=== PATIENT | female | born 1960 | race Caucasian/White ===

== ENCOUNTER 2018-01-19 19:01 | Emergency (ER) | payer OTHER ==
[~2018-01-19] VITALS: Ht 172.7 cm; Wt 84.0 kg
[2018-01-19 20:07] LABS: BASOPHIL (%) 0.6 % (0-1); BASOPHIL COUNT 0.1 K/uL (0-0.1); EOSINOPHIL (%) 2.9 % (0-5); EOSINOPHIL COUNT 0.2 K/uL (0-0.3); HEMATOCRIT 38.3 % (36.0-46.0); HEMOGLOBIN 12.9 G/DL (11.9-15.5); IMMATURE GRANULOCYTE (%) 0.3 % (0.0-0.7); LYMPHOCYTE (%) 25.8 % (15-42); MCH 30.1 PG (29.0-34.0); MCHC 33.7 G/DL (30.0-36.0); MCV 89.5 FL (83-99); MONOCYTE (%) 7.1 % (3-12); MONOCYTE COUNT 0.6 K/uL (0-0.8); NEUTROPHIL (%) 63.3 % (45-76); PLATELET COUNT 243 K/uL (156-360); RBC DIS.WIDTH-CV 12.5 % (11.8-14.6); RBC DIS.WIDTH-SD 41.1 % (39-53); RED BLOOD COUNT 4.28 M/uL (3.80-5.20); WHITE BLOOD COUNT 7.9 K/uL (4.1-10.2)
[2018-01-19 20:17] LABS: CHLORIDE 107 mEq/L (99-109); POTASSIUM 4.1 mEq/L (3.7-5.4); SODIUM 144 mEq/L (136-147)
[2018-01-19 20:18] LABS: GLUCOSE 120 mg/dL (70-99)
[2018-01-19 20:22] LABS: CREATININE 0.8 mg/dL (0.6-1.3); GFR ESTIMATE (CALCULATED) > 59 mL/min/
[2018-01-19 20:23] LABS: UREA NITROGEN (BUN) 16 mg/dL (9-23)
[2018-01-19 20:31] LABS: TROP-I INTERPRETATION NEGATIVE; TROPONIN-I < 0.01 ng/mL (0.0-0.30)
[2018-01-19 22:10] VITALS: BP 124/81
== END 2018-01-19 22:17 | disposition home or self-care (01) ==
LOC: EME 19:01
PROVIDERS: Emergency Medicine
DX: R00.2 Palpitations (principal)
CPT/HCPCS: 80048; 84484; 85025; 85379; 93005; 99281; 99284